=== PATIENT | female | born 1990 | race Caucasian/White ===

== ENCOUNTER 2017-08-29 04:52 | Emergency (ER) | payer SELFPAY ==
[~2017-08-29] VITALS: Ht 180.3 cm; Wt 80.0 kg
[2017-08-29 04:55] VITALS: BP 115/76; PULSE 96; RESP 18; TEMP 98.3; O2SAT 100
--- NOTE | 2017-08-29 05:31 | PD ---
HPI Chief Complaint: Skin Problem Time Seen by Provider: 05:27 Travel History International Travel<30 days: No Contact w/Intl Traveler<30days: No Traveled to known affect area: No History of Present Illness HPI Patient comes in complaining of 2 separate complaints. Complaint #1 has been ongoing for weeks and it is really not much different than he has been in the past, she points to her right flank area as the area of pain. Denies that it radiates, rates it about 4 or 5 out of 10, intermittent, sometimes sharp sometimes pressure. However this did not seem to be something that was bothering her enough to come in and get evaluated more urgently. What brings her in truly today is that she has is lump on the side of her" thing" and points to her vagina. No known drug allergy Past medical history significant for neck and back orthopedic surgery, patient admits to cocaine use, she also admits to hepatitis C history. PFSH Past Medical History Diminished Hearing: No Hepatitis: Yes (C) Tetanus Vaccination: < 5 Years Influenza Vaccination: No ?: Unknown LMP: 07/19/2017 Social History Alcohol Use: Yes (daily) Tobacco Use: Yes Substance Use: Yes (cocaine) Allergies-Medications (Allergen,Severity, Reaction): Coded Allergies: No Known Allergies (Unverified , 08/29/17) Reported Meds & Prescriptions Reported Meds & Active Scripts Active Bactrim DS (Sulfamethoxazole-Trimethoprim) 800-160 Mg Tab 1 Tab PO BID Review of Systems General / Constitutional: No: Fever Eyes: No: Visual changes HENT: No: Headaches Cardiovascular: No: Chest Pain or Discomfort Respiratory: No: Shortness of Breath Gastrointestinal: No: Abdominal Pain Genitourinary: Positive: Flank Pain Musculoskeletal: No: Pain Skin: Positive Lesions Neurologic: No: Weakness Psychiatric: No: Depression Endocrine: No: Polydipsia Hematologic/Lymphatic: No: Easy Bruising Physical Exam Narrative GENERAL: SKIN: Warm and dry. HEAD: Atraumatic. Normocephalic. EYES: Pupils equal and round. No scleral icterus. No injection or drainage. ENT: No nasal bleeding or discharge. Mucous membranes pink and moist. NECK: Trachea midline. No JVD. CARDIOVASCULAR: Regular rate and rhythm. RESPIRATORY: No accessory muscle use. Clear to auscultation. Breath sounds equal bilaterally. GASTROINTESTINAL: Abdomen soft, non-tender, nondistended. RN at bedside for the external vulvar examination. Patient showed folliculitis on her external vulva. No induration, no streaking, no lymphadenopathy, no vaginal discharge. MUSCULOSKELETAL: Extremities without clubbing, cyanosis, or edema. No obvious deformities. NEUROLOGICAL: Awake and alert. No obvious cranial nerve deficits. Motor grossly within normal limits. Five out of 5 muscle strength in the arms and legs. Normal speech. PSYCHIATRIC: Appropriate mood and affect; insight and judgment normal. Data Data Last Documented VS Vital Signs Date Time Temp Pulse Resp B/P (MAP) Pulse Ox O2 Delivery O2 Flow Rate FiO2 08/29/17 04:55 98.3 96 18 115/76 (89) [address] Abd/Pel W/O Iv Contrast (08/29/17 05:25) Urinalysis - C+S If Indicated (08/29/17 05:31) Ed Urine Pregnancytest Poc (08/29/17 05:31) Clindamycin Inj (Cleocin Inj) (08/29/17 06:15) Urine Culture (08/29/17 05:53) Labs Laboratory Tests Test 08/29/17 05:53 Urine Color YELLOW Urine Turbidity HAZY Urine pH 6.0 Urine Specific [place] 1.025 Urine Protein 30 mg/dL Urine Glucose (UA) NEG mg/dL Urine Ketones 10 mg/dL Urine Occult Blood MOD Urine Nitrite POS Urine Bilirubin NEG Urine Urobilinogen 2.0 MG/DL Urine Leukocyte Esterase LARGE Urine RBC 27 /hpf Urine WBC /hpf Urine WBC Clumps OCC Urine Squamous Epithelial Cells 6 /hpf Urine Renal Epithelial Cells 3 /hpf Urine Bacteria MANY /hpf Urine Mucus MANY /lpf Microscopic Urinalysis Comment CULTURE INDICATED MDM Medical Decision Making Medical Screen Exam Complete: Yes Emergency Medical Condition: Yes Medical Record Reviewed: Yes Differential Diagnosis Renal colic versus UTI versus pyelonephritis Bartholin's cyst versus folliculitis versus abscess versus cellulitis Narrative Course test negative UA is consistent with a UTI CT abdomen and pelvis read by radiologist as a benign 5.3 cm parenchymal cyst in the left lung base otherwise lung bases are otherwise clear. Pectus excavating deformity of the lower chest. 1.8 cm anterior abdominal wall periumbilical hernia which only contains fat. And a 2.7 cm left ovarian cyst. Diagnosis Primary Impression: Folliculitis Additional Impression: UTI Patient Instructions: Folliculitis (ED), General Instructions, Urinary Tract Infection in Women (DC) Scripts Sulfamethoxazole-Trimethoprim (Bactrim DS) 800-160 Mg Tab 1 TAB PO BID for Infection, #20 TAB 0 Refills Prov: Reji Kearney MD 08/29/17 Disposition: 01 DISCHARGE HOME Condition: Stable Reji Kearney MD Aug 29, 2017 05:31
[2017-08-29] MEDS ORDERED: BACT800T5 PO (06:12)
[2017-08-29] MEDS ORDERED: CLINDAMYCIN PHOS 300 MG/2 ML VIAL IM ONE (06:15)
[2017-08-29 06:20] LABS: BACTERIA, URINE MANY /hpf; BLOOD, URINE MOD (NEG); GLUCOSE,URINE NEG (NEG); KETONE, URINE 10 mg/dL (NEG); MUCUS URINE MANY /lpf (OCC); NITRITE,URINE POS (NEG); RENAL EPITHELIAL CELLS 3 /hpf; SQUAMOUS EPITHELIAL CELL URINE 6 /hpf (0-5); URINE COLOR YELLOW (YELLW/STRAW); URINE LEUKOCYTE ESTERASE LARGE (NEG); WHITE BLOOD CELL CLUMPS OCC
[2017-08-29 06:23] LABS: BILIRUBIN, URINE NEG (NEG)
--- NOTE | 2017-08-29 06:28 | RADRPT ---
EXAM DATE/TIME: 08/29/2017 05:50 [facility] COMPARISON: No previous studies available for comparison. INDICATIONS : Right flank pain. ORAL CONTRAST: No oral contrast ingested. RADIATION DOSE: 6.68 CTDIvol (mGy) MEDICAL HISTORY : Hepatitis C. Substance abuse SURGICAL HISTORY : IVC Filter placement. Fusion, thoracic. ENCOUNTER: Initial ACUITY: 2 weeks PAIN SCALE: 5/10 LOCATION: Right flank TECHNIQUE: Volumetric scanning of the abdomen and pelvis was performed. Using automated exposure control and ad justment of the mA and/or kV according to patient size, radiation dose was kept as low as reasonably achievable to obtain optimal diagnostic quality images. DICOM format image data is available electro nically for review and comparison. FINDINGS: LOWER LUNGS: The visualized lower lungs are clear. 5.3 cm parenchymal cyst in the left lung base. Pectus excavatum deformity of the lower chest. LIVER: Homogeneous density without lesion. There is no dilation of the biliary tree. No calcified gallston es. SPLEEN: Normal size without lesion. PANCREAS: Within normal limits. KIDNEYS: Normal in size and shape. There is no mass, stone, or hydronephrosis. ADRENAL GLANDS: Within normal limits. VASCULAR: There is no aortic aneurysm. IVC filter. BOWEL/MESENTERY: The stomach, small bowel, and colon demonstrate no acute abnormality. There is no free intraperitone al air or fluid. ABDOMINAL WALL: 1.8 cm paraumbilical hernia only contains fat. RETROPERITONEUM: There is no lymphadenopathy. BLADDER: No wall thickening or mass. REPRODUCTIVE: Within normal limits. INGUINAL: 2.7 cm probable left ovarian cyst. MUSCULOSKELETAL: Transpedicular fixation of the lower dorsal spine. Otherwise intact. CONCLUSION: 1. Benign 5.3 cm parenchymal cyst in the left lung base. Lung bases are otherwise clear. 2. Pectus excavating deformity of the lower chest. 1.8 cm anterior abdominal wall periumbilical herni a which only contains fat. 3. Probable 2.7 cm left ovarian cyst. Myles Omalley MD on August 29, 2017 at 6:23 Board Certified Radiologist. This report was verified electronically.
== END 2017-08-29 09:25 | disposition home or self-care (01) ==
LOC: NEPE 04:52
DX: L73.9 Follicular disorder, unspecified (principal); N39.0 Urinary tract infection, site not specified; K42.9 Umbilical hernia without obstruction or gangrene; N83.202 Unspecified ovarian cyst, left side; F14.90 Cocaine use, unspecified, uncomplicated
CPT/HCPCS: 74176; 81001; 84703; 87077; 87086; 87186; 96372